=== PATIENT | female | born 1980 | race Caucasian/White ===

== ENCOUNTER 2016-05-29 11:30 | Emergency (ER) | payer OTHER ==
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
[~2016-05-29 11:30] MED LIST: ALBUTEROL17 GM INH; AMOXICILLIN875 MG PO; BENTYL20 MG DOB; CIPRO PO; FIORICET1 TAB PO; MUCINEX DM ER1 EACH PO; NO MEDICATIONS; PEPCID AC20 M1 PO; PHENERGAN DM1 ML PO; PHENERGAN25 MG PO; PREDNISONE PO; PYRIDIUM PO; SEROQUEL300 M1 PO; ZITHROMAX PO; ZOFRAN ODT4 MG PO
== END 2016-05-29 11:47 | disposition home or self-care (01) ==
LOC: CFTX 11:30
DX: S13.4XXA Sprain of ligaments of cervical spine, initial encounter (principal); S23.3XXA Sprain of ligaments of thoracic spine, initial encounter; S33.5XXA Sprain of ligaments of lumbar spine, initial encounter; F32.9 Major depressive disorder, single episode, unspecified; F17.210 Nicotine dependence, cigarettes, uncomplicated; V43.52XA Car driver injured in collision with other type car in traffic accident, initial encounter; Y92.410 Unspecified street and highway as the place of occurrence of the external cause
CPT/HCPCS: 71101; 72040; 72072; 72100; 99284